=== PATIENT | male | born 1965 | race Two or more races ===

== ENCOUNTER 2022-01-19 14:24 | Emergency (ER) | payer OTHER ==
[~2022-01-19] VITALS: Ht 172.7 cm; Wt 101.6 kg
[2022-01-19] MEDS ORDERED: KAPSPARGO SPRIN25 MG PO (14:35)
== END 2022-01-19 18:16 | disposition home or self-care (01) ==
LOC: ER 14:24
DX: E16.0 Drug-induced hypoglycemia without coma (principal); T38.3X5S Adverse effect of insulin and oral hypoglycemic [antidiabetic] drugs, sequela; R42 Dizziness and giddiness; Z20.822 Contact with and (suspected) exposure to COVID-19